=== PATIENT | male | born 1985 | race Caucasian/White ===

== ENCOUNTER 2022-09-22 11:34 | Day surgery (SDC) | payer OTHER, SELFPAY ==
[2022-09-20 15:11] VITALS: BMI 29.5
[2022-09-22] VITALS (7 sets, daily range): BP systolic 94–139; BP diastolic 49–90; PULSE 70–93; RESP 12–18; TEMP 36.8–37.1; O2SAT 93–99; BMI 29.5
--- NOTE | 2022-09-22 12:01 | PM.PREOP ---
Pre-operative Note Interval Note History & Physical reviewed/Exam performed by Physician: Yes Changes to H&P: No
[2022-09-22] MEDS: LACTATED RINGERS 1,000 ML 42 ML IV ×2 (12:11→14:51)
[2022-09-22] MEDS: OXYMETAZOLINE NASAL SPRAY 15 ML 2 SPRAYS NASAL ×2 (12:16→13:49)
--- NOTE | 2022-09-22 12:19 | PM.HP.1 ---
History of Present Illness History of Present Illness Date Patient Seen: 09/22/22 Time Patient Seen: 12:20 Chief complaint: Septoplasty Narrative: 36-year-old male last seen in clinic 08/02/2022 presents for septoplasty, turbinate reduction, meliza bullosa resection and anterior endoscopic sinus surgery for persistent nasal airway obstruction, septal deviation, and chronic rhinosinusitis. No interval health changes since last visit, no recent cough, cold, or fever. Patient History Medical History Allergic rhinitis Anemia Anxiety Chronic pansinusitis Meliza bullosa Depression Deviated septum Hx of fracture of nose Nasal obstruction Nasal turbinate hypertrophy Tinnitus (2019) Family & Social History Social History: household members friend(s) Tobacco & Substance use: Smoking Status Never smoker alcohol intake never Substance Use Type does not use Meds Home Medications and Allergies Home Medications Medication Instructions Recorded Confirmed Type dextroamphetamine-amphetamine ER 25 mg PO DAILY 09/20/22 09/22/22 History 25 mg 24hr capsule,extend release (Adderall XR) Allergies Allergy/AdvReac Type Severity Reaction Status Date / Time No Known Drug Allergies Allergy Verified 09/22/22 11:52 Review of Systems Review of Systems Narrative: Negative except as listed in the HPI Exam Vital Signs (past 8 hours): - 09/22/22 11:58 Temperature 98.8 F Pulse Rate 70 Respiratory Rate 16 Blood Pressure 129/77 Pulse Oximetry 99 Oxygen Delivery Method Room Air Oxygen Delivery Method Room Air Narrative Exam Narrative: Well-developed well-nourished, heart regular rate and rhythm without murmur, lungs clear to auscultation bilaterally Assessment & Plan Assessment & Plan narrative: Assessment: Nasal airway obstruction, septal deviation, inferior turbinate hypertrophy, left meliza bullosa, chronic rhinosinusitis Plan: Following discussion of the material risks benefits complications and alternatives, the patient elected to proceed. Time Spent With Patient Critical Care time: I spent a total of [] minutes of critical care time on this patient's care today; this time is exclusive of procedural time.
--- NOTE | 2022-09-22 12:22 | PM.OP.1 ---
Operative Date/Time/Diagnoses Date of procedure: 09/22/22 Time of procedure: 15:37 Pre-op diagnosis: Nasal airway obstruction, septal deviation, inferior turbinate hypertrophy, chronic rhinosinusitis, left meliza bullosa Post-op diagnosis: same Procedure & Clinicians Procedure: 1. Septoplasty 2. Bilateral endoscopic maxillary antrostomy 3. Bilateral endoscopic anterior ethmoidectomy 4. Left meliza bullosa resection 5. Bilateral inferior turbinate reduction via intramural cautery Same procedure as scheduled: Yes Indications: 36 Year old with the above diagnoses incompletely managed with medical therapy presents for the above procedure. Following discussion of the material risks benefits complications and alternatives, the patient elected to proceed. Surgeon: Prasanna Rodríguez Click Yes if Unassisted: Yes Anesthesia Type: General and Local Operative Notes Findings: 2+ left caudal and anterior septal deviation, 2 to 3+ right posterior and high deviation. Healthy visible sinus mucosa including within left meliza bullosa. Atypical anatomy, antrostomy approached via fontanelle bilaterally, no clear typical uncinate process bilaterally. Pumping small artery from the maxillary crest during septoplasty required repeated cautery and pressure, eventually controlled. LEFT anterior septal flap linear laceration repaired, other primarily posterior LEFT posterior flap lacerations in addition. Estimated Blood Loss (mL): 300 Procedure in detail: Following identification and confirmation of consent as well as preoperative Afrin nasal spray, the patient was brought to the operating room suite and placed in the supine position. General endotracheal anesthesia was administered. I infiltrated the septum widely bilaterally with 1% lidocaine 1 100,000 epinephrine followed by temporary packing with cotton with Afrin and 4% lidocaine. Following sterile prep and drape, the packing was removed and I performed a right alyson-transfixion incision, elevated the right mucoperichondrial and mucoperiosteal flap. I disarticulated near the bony/cartilaginous junction and elevated the left mucoperiosteal flap. Deviated portions of the perpendicular plate of the ethmoid and vomer were resected. A pumping artery of the exposed maxillary crest required repeated suction cautery and pressure for control. The residual quadrilateral cartilage was further straightened by trimming it inferiorly as well as reducing the maxillary crest. A 2 mm strip of cartilage paralleling the residual 1 cm dorsal and caudal strut was resected to further straighten the quadrilateral cartilage. The hemitransfixion incision was closed with interrupted 5 0 chromic followed by a running 4 0 plain gut mattress suture to reapproximate the septal flaps. The head of each inferior turbinate had been previously infiltrated with additional local anesthetic and a 25 gauge spinal needle was used to impale the length of the turbinate, with cautery on a setting of 15 activated on slow withdrawal over 2 passes each side. The turbinates were then outfractured. Under endoscopic guidance the posterior and anterior superior insertion of each middle turbinate was then infiltrated with additional local anesthetic via spinal needle. Temporary packing within each middle meatus with small cotton pledgets and 1 1000 epinephrine was performed. Beginning on the left side, lateral surface of the meliza bullosa was resected with the microdebrider. the middle turbinate was slightly medialized and the uncinate process was atypical and the natural os of the maxillary sinus could not be identified. An opening in the posterior fontanelle was enlarged anteriorly until the [place] os of the maxillary sinus was identified and included in the antrostomy. Anterior ethmoidectomy was performed by removing the ethmoid bulla with the microdebrider. This procedure was repeated on the right side with nearly dentical findings, although no meliza bullosa was present. At case completion, 20/1000th of an inch silastic splints were placed bilaterally, sutured anteriorly with a single 4 0 nylon. The procedure completed, sponge and needle counts were correct and the patient was extubated in the operating room and taken to recovery room in stable condition without known complication. Complications: none Post-operative Condition: stable Disposition: same day surgery Plan for aftercare: Nasal saline every hour while awake, begin irrigations t.i.d. tomorrow if tolerated. Polysporin to the nostrils at all times, Tylenol alternating with Advil for pain control, oxycodone for breakthrough pain. Elevate head of bed, no nose blowing, no straining for 2 weeks. Ice directly under the nose on the upper lip has tolerated 24-48 hours at a minimum. Follow-up in 1 week for nasal splint removal.
--- NOTE | 2022-09-22 13:34 | SUR.OPER ---
Supine on padded OR bed, head on pillow, arms padded and tucked at sides, legs uncrossed, safety belt at thigh, tape over blanket over lower legs .
[2022-09-22] MEDS: LIDOCAINE 1% W/EPI 20 ML INJ (13:46)
[2022-09-22] MEDS: LIDOCAINE 4% SOLN 50 ML 20 ML TOP (13:46)
[2022-09-22] MEDS: BACITRACIN 28 GM OINT 1 APPLIC TOP (13:49)
[2022-09-22] MEDS: OXYCODONE IR 5 MG TABLET PO (16:22)
== END 2022-09-22 16:50 | disposition home or self-care (01) ==
PROVIDERS: Referring Provider Otolaryngology; Visit Provider Otolaryngology
PROC: (CPT 30520; principal; 2022-09-22 12:45)
PROC: (CPT 31231; 2022-09-22 12:45)
DX: J34.2 Deviated nasal septum (principal); J34.89 Other specified disorders of nose and nasal sinuses; J32.4 Chronic pansinusitis; J34.3 Hypertrophy of nasal turbinates
CPT/HCPCS: 31254; 31256; 31240; 30802; 30520; J0330; J1100; J2405; J2704; J3010